=== PATIENT | male | born 1995 | race African-American/Black ===

== ENCOUNTER 2023-08-12 13:21 | Emergency (ER) | payer SELFPAY ==
[~2023-08-12] VITALS: Ht 157.5 cm; Wt 59.1 kg
[2023-08-12 13:22] VITALS: BP 116/77; O2SAT 99
[2023-08-12] MEDS: ACETAMINOPHEN TAB 650MG DOSE (2X325MG) PO ONE (13:53)
[2023-08-12 14:58] VITALS: TEMP 99.6
== END 2023-08-12 16:06 | disposition home or self-care (01) ==
LOC: M ED 13:21
DX: J06.9 Acute upper respiratory infection, unspecified (principal); F12.10 Cannabis abuse, uncomplicated

== ENCOUNTER 2023-11-25 18:52 | Emergency (ER) | payer OTHER, SELFPAY ==
[~2023-11-25] VITALS: Ht 157.5 cm; Wt 55.9 kg
[2023-11-25 18:52] VITALS: BP 120/72; TEMP 102.9; O2SAT 95
[2023-11-25] MEDS: ACETAMINOPHEN TAB 650MG DOSE (2X325MG) PO ONE (19:44)
== END 2023-11-25 22:10 | disposition left against medical advice (07) ==
LOC: M ED 18:52
DX: Z53.21 Procedure and treatment not carried out due to patient leaving prior to being seen by health care provider (principal)

== ENCOUNTER → 2024-07-14 | Outpatient (REF) | payer OTHER ==
[2024-07-14 12:57] LABS: HEMATOCRIT 44.3 % (42.0-52.0); HEMOGLOBIN 14.4 g/dl (13.5-17.5); MEAN CORPUSCULAR HEMOGLOBIN 28.8 pg (27.0-33.0); MEAN CORPUSCULAR HGB CONC 32.5 g/dl (32.0-36.5); MEAN CORPUSCULAR VOLUME 88.6 fl (80.0-96.0); PLATELET COUNT, AUTOMATED 213 10^3/uL (150-450); WHITE BLOOD COUNT 9.7 10^3/uL (4.0-10.0)
[2024-07-14 13:10] LABS: HEMOGLOBIN A1c 5.4 % (4.0-6.0)
[2024-07-14 13:22] LABS: THYROID STIMULATING HORMONE 2.204 uIU/ML (0.55-4.78)
[2024-07-14 13:24] LABS: ALBUMIN 4.1 G/DL (3.2-5.2); ALKALINE PHOSPHATASE 52 U/L (40-129); ALT/SGPT 33 U/L (7.0-40); AST/SGOT 26 U/L (<34); BILIRUBIN,TOTAL 0.3 MG/DL (0.3-1.2); BLOOD UREA NITROGEN 18 MG/DL (9-23); CALCIUM LEVEL 9.1 MG/DL (8.5-10.1); CARBON DIOXIDE LEVEL 32 MMOL/L (20-31); CHLORIDE LEVEL 104 MMOL/L (98-107); CHOLESTEROL LEVEL 156 MG/DL (<200); CHOLESTEROL RISK RATIO 4.38 (<5); CREATININE FOR GFR 0.87 MG/DL (0.70-1.30); GLOMERULAR FILTRATION RATE > 90.0 (>60); GLUCOSE, FASTING 81 MG/DL (60-100); HDL CHOLESTEROL 35.6 MG/DL (>40); NON-HDL-C 120.4 MG/DL; POTASSIUM SERUM 4.4 MMOL/L (3.5-5.1); SODIUM LEVEL 142 MMOL/L (136-145); TRIGLYCERIDES LEVEL 237 MG/DL (<150)
== END ==
LOC: M LAB REF 12:10
PROVIDERS: ATTEND Student in an Organized Health Care Education/Training Program
DX: Z00.01 Encounter for general adult medical examination with abnormal findings (principal)

== ENCOUNTER 2024-10-09 09:48 | Emergency (ER) | payer OTHER ==
[~2024-10-09] VITALS: Ht 157.5 cm; Wt 56.6 kg
[2024-10-09 10:49] LABS: BASO # 0.0 10^3/uL (0.0-0.2); BASO % 0.3 % (0.0-1.0); EOS # 0.1 10^3/uL (0.0-0.5); EOS % 0.8 % (0.0-3.0); LYMPH # 1.7 10^3/uL (1.5-5.0); LYMPH % 16.5 % (24.0-44.0); MONO # 1.3 10^3/uL (0.0-0.8); MONO % 11.9 % (2.0-8.0); NEUTROPHILS # 7.4 10^3/uL (1.5-8.5); NEUTROPHILS % 70.3 % (36.0-66.0); PLATELET COUNT, AUTOMATED 192 10^3/uL (150-450)
[2024-10-09 11:21] LABS: ALT/SGPT 33 U/L (7.0-40); AST/SGOT 33 U/L (<34); CALCIUM LEVEL 9.4 MG/DL (8.5-10.1); CARBON DIOXIDE LEVEL 28 MMOL/L (20-31); CHLORIDE LEVEL 102 MMOL/L (98-107); CREATININE FOR GFR 0.97 MG/DL (0.70-1.30); GLOMERULAR FILTRATION RATE > 90.0 (>60); POTASSIUM SERUM 3.9 MMOL/L (3.5-5.1); SODIUM LEVEL 142 MMOL/L (136-145)
[2024-10-09] MEDS ORDERED: HOME MED LIST COMPLETE! XX SCH (12:50)
[2024-10-09] MEDS: MAALOX 30 ML SUSP *UDC PO ONE (13:34)
[2024-10-09] MEDS: LIDOCAINE VISCOUS 2% SOLN 15 ML UDC PO ONE (13:34)
[2024-10-09] MEDS: SUCRALFATE SUSP 1GM/10ML UD PO ONE (13:34)
[2024-10-09] MEDS ORDERED: AZIT500T5 PO (16:11)
[2024-10-09 16:12] VITALS: BP 135/91; TEMP 98.2; O2SAT 97
== END 2024-10-09 16:21 | disposition home or self-care (01) ==
LOC: M ED 09:48
DX: A04.5 Campylobacter enteritis (principal); A04.0 Enteropathogenic Escherichia coli infection; F12.10 Cannabis abuse, uncomplicated; Z79.2 Long term (current) use of antibiotics